=== PATIENT | female | born 1980 | race Caucasian/White ===

== ENCOUNTER 2016-08-01 10:59 | Inpatient (IN) | payer BC ==
[2016-08-01] VITALS (15 sets, daily range): BP systolic 121–163; BP diastolic 65–104
[~2016-08-01 10:59] MED LIST: AMOXICILLIN500 MG PO; FLEXERIL5 MG PO; LYRICA75 MG PO; MOBIC7.5 MG PO; NORCO 5/3251 TABLET PO; PERCOCET 5/31 TABLET PO; ZOFRAN4 MG PO
[2016-08-01 12:48] LABS: EOSINOPHIL (%) 0.2 % (0-5); HEMATOCRIT 34.3 % (36.0-46.0); IMMATURE GRANULOCYTE (%) 0.4 % (0.0-0.7); LYMPHOCYTE COUNT 1.5 K/uL (1.0-2.8); MCH 30.7 PG (29.0-34.0); MCHC 33.8 G/DL (30.0-36.0); MCV 90.7 FL (83-99); MEAN PLAT.VOLUME 12.3 uM^3 (9.5-12.4); MONOCYTE (%) 7.7 % (3-12); MONOCYTE COUNT 0.6 K/uL (0-0.8); NEUTROPHIL (%) 73.2 % (45-76); PLATELET COUNT 171 K/uL (156-360); RBC DIS.WIDTH-SD 42.6 % (39-53); RED BLOOD COUNT 3.78 M/uL (3.80-5.20); WHITE BLOOD COUNT 8.2 K/uL (4.1-10.2)
[2016-08-01 13:15] LABS: ANION GAP 11 MEQ/L (2-14); CHLORIDE 104 MEQ/L (99-109); POTASSIUM 4.5 MEQ/L (3.7-5.4); SAMPLE HEMOLYSIS CHECK 0; SAMPLE ICTERIC CHECK 0; SAMPLE LIPEMIA CHECK 0; SODIUM 135 MEQ/L (136-147); TOTAL BILIRUBIN 0.3 MG/DL (0.0-1.0)
[2016-08-01 13:21] LABS: ALKALINE PHOSPHATASE 119 IU/L (3-129); GFR ESTIMATE (CALCULATED) > 59 mL/min/; GLUCOSE 77 mg/dL (70-99); UREA NITROGEN (BUN) 10 mg/dL (9-23)
[2016-08-01 13:47] LABS: ADD MIUA? YES; BILIRUBIN NEGATIVE; BLOOD NEGATIVE; COLOR YELLOW ((YELLOW)); GLUCOSE (STRIP) NEGATIVE; KETONES NEGATIVE; LEUKOCYTES SMALL; NITRITE NEGATIVE; PROTEIN (STRIP) NEGATIVE; SPECIFIC GRAVITY 1.006 (1.000-1.030); UROBILINOGEN 0.2 MG/DL (0.2-1.0)
[2016-08-01 13:56] LABS: BACTERIA 3+ /HPF; EPITHELIAL CELLS RARE /HPF; MUCUS TRACE /LPF; RED BLOOD CELLS 0-5 /HPF (0-5); UCUL ADDED? NO; WHITE BLOOD CELLS 0-5 /HPF (0-5)
[2016-08-01 14:06] LABS: UR CREATININE CONCENTRATION 31.5 MG/DL
[2016-08-01] MEDS ORDERED: LABETALOL HCL300 MG PO (15:53)
[2016-08-01] MEDS ORDERED: NORMODYNE,TRAN300 MG PO (15:53)
[2016-08-01] MEDS ORDERED: IRON325 MG PO (15:54)
[2016-08-01] MEDS ORDERED: PRENATAL TABLE1 EAC3 PO (15:54)
[2016-08-01] MEDS ORDERED: LO-DOSE ASPIRIN81 M2 PO (15:54)
[2016-08-01] MEDS ORDERED: COLACE100 MG PO (15:55)
[2016-08-01] MEDS ORDERED: HEPARIN SO5000 UNIT3 SC (15:57)
[2016-08-02] VITALS (34 sets, daily range): BP systolic 117–177; BP diastolic 67–110
[2016-08-03] VITALS (10 sets, daily range): BP systolic 130–159; BP diastolic 70–94
[2016-08-03] MEDS ORDERED: ENDOCET 5-3251 EACH PO (00:34)
[2016-08-03] MEDS ORDERED: IBUPROFEN800 MG PO (00:34)
[2016-08-03] MEDS ORDERED: HEPARIN SO5000 UNITS SC (00:51)
[2016-08-03] MEDS ORDERED: LABETALOL HCL200 MG PO (00:51)
[2016-08-04 00:21] VITALS: BP 116/64
[2016-08-04 03:09] VITALS: BP 128/61
[2016-08-04 07:30] VITALS: BP 122/66
[2016-08-04 07:53] LABS: EOSINOPHIL (%) 0.8 % (0-5); EOSINOPHIL COUNT 0.1 K/uL (0-0.3); HEMATOCRIT 26.9 % (36.0-46.0); IMMATURE GRANULOCYTE (%) 0.4 % (0.0-0.7); LYMPHOCYTE COUNT 2.1 K/uL (1.0-2.8); MCH 30.1 PG (29.0-34.0); MCHC 32.3 G/DL (30.0-36.0); MCV 93.1 FL (83-99); MEAN PLAT.VOLUME 11.8 uM^3 (9.5-12.4); MONOCYTE (%) 9.2 % (3-12); MONOCYTE COUNT 0.9 K/uL (0-0.8); NEUTROPHIL (%) 67.1 % (45-76); NEUTROPHIL COUNT 6.2 K/uL (1.8-6.4); PLATELET COUNT 151 K/uL (156-360); RBC DIS.WIDTH-CV 13.2 % (11.8-14.6); RBC DIS.WIDTH-SD 45.1 % (39-53); WHITE BLOOD COUNT 9.3 K/uL (4.1-10.2)
[2016-08-04 07:54] LABS: INSTRUMENT ABS NEUTROPHIL CT 6.2 K/uL
[2016-08-04 07:59] LABS: RED BLOOD COUNT 2.89 M/uL (3.80-5.20)
[2016-08-04 11:00] VITALS: BP 131/85
[2016-08-04 19:43] VITALS: BP 104/57
== END 2016-08-04 23:35 | disposition home or self-care (01) | DRG 774 ==
LOC: LDRP-OP 10:59 → 2WEST 11:00 → LDRP-OP 09-17 15:50
PROVIDERS: Obstetrics & Gynecology
PROC: 10E0XZZ Delivery of Products of Conception, External Approach (ICD-10-PCS; principal; 2016-08-02)
PROC: 3E0P7GC Introduction of Other Therapeutic Substance into Female Reproductive, Via Natural or Artificial Opening (ICD-10-PCS; 2016-08-02)
PROC: 3E0S3BZ Introduction of Anesthetic Agent into Epidural Space, Percutaneous Approach (ICD-10-PCS; 2016-08-02)
DX: O11.4 Pre-existing hypertension with pre-eclampsia, complicating childbirth (principal); O15.1 Eclampsia complicating labor; O41.03X0 Oligohydramnios, third trimester, not applicable or unspecified; O99.12 Other diseases of the blood and blood-forming organs and certain disorders involving the immune mechanism complicating childbirth; D68.51 Activated protein C resistance; D62 Acute posthemorrhagic anemia; F11.20 Opioid dependence, uncomplicated; F33.9 Major depressive disorder, recurrent, unspecified; Z3A.37 37 weeks gestation of pregnancy; Z37.0 Single live birth; O99.344 Other mental disorders complicating childbirth; O99.02 Anemia complicating childbirth; F41.9 Anxiety disorder, unspecified; O09.523 Supervision of elderly multigravida, third trimester; O99.214 Obesity complicating childbirth; F12.20 Cannabis dependence, uncomplicated; O09.43 Supervision of pregnancy with grand multiparity, third trimester; Z68.35 Body mass index [BMI] 35.0-35.9, adult
CPT/HCPCS: 80053; 81003; 82570; 84156; 85025; C1755; G0378; J1644; J3010; J7120